=== PATIENT | male | born 1975 | race Hispanic/Latino ===

== ENCOUNTER 2023-04-16 14:57 | Emergency (ER) | payer BC ==
[~2023-04-16] VITALS: Ht 167.6 cm; Wt 76.2 kg
[2023-04-16 15:23] VITALS: BP 131/60; PULSE 72; RESP 20
[2023-04-16] MEDS ORDERED: KETOROLAC 30MG VIAL (30MG/ML) IM ONE (16:00)
[2023-04-16] MEDS ORDERED: CYCL10TA16 PO (17:11)
[2023-04-16] MEDS ORDERED: METH4TAB3 PO (17:11)
[2023-04-16] MEDS ORDERED: IBUP-2071 PO (17:15)
== END 2023-04-16 17:23 | disposition home or self-care (01) ==
LOC: EDH 14:57
DX: M51.16 Intervertebral disc disorders with radiculopathy, lumbar region (principal)
CPT/HCPCS: 99284; 72100; 96372; J1885